=== PATIENT | female | born 1945 | race Two or more races ===

== ENCOUNTER 2018-12-04 09:29 | Emergency (ER) | payer MEDICARE, OTHER ==
[~2018-12-04] VITALS: Ht 157.5 cm; Wt 69.4 kg
--- NOTE | 2018-12-04 09:32 | NUR ---
AAOx3, BIB caregiver from home c/o right thumb pain and swelling, +deformity s/p slipped and fell x 5 days ago. RR is even and unlabored with nad noted. Skin is warm and dry. Awaiting md for eval.
--- NOTE | 2018-12-04 09:38 | NUR ---
Dr Rosales at for eval.
[2018-12-04] MEDS ORDERED: LIDOCAINE HCL/PF 1% 30 ML SDV ONE (09:45)
[2018-12-04] MEDS ORDERED: LIDOCAINE HCL/PF 1% 30 ML VIAL IM ONE (10:00)
[2018-12-04 10:22] VITALS: BP 117/72
--- NOTE | 2018-12-04 10:22 | NUR ---
Patient discharged to home in stable condition. Written and verbal after care instructions given. Patient verbalizes understanding of instruction.
== END 2018-12-04 10:22 | disposition home or self-care (01) ==
LOC: ER 09:33
DX: S63.124A Dislocation of interphalangeal joint of right thumb, initial encounter (principal); F31.9 Bipolar disorder, unspecified; Z98.890 Other specified postprocedural states; Z88.3 Allergy status to other anti-infective agents; W01.0XXA Fall on same level from slipping, tripping and stumbling without subsequent striking against object, initial encounter; Y93.89 Activity, other specified; Y92.89 Other specified places as the place of occurrence of the external cause; Y99.8 Other external cause status
CPT/HCPCS: 26770; 73140; 99284; J3490 ×2

== ENCOUNTER 2021-10-07 13:56 | Inpatient (IN) | payer MEDICARE, OTHER ==
[~2021-10-07] VITALS: Ht 160 cm; Wt 66.7 kg
--- NOTE | 2021-10-07 14:12 | NUR ---
BIBS FEELING MORE DEPRESSED THAN USUAL DENIES SUICIDAL IDEATION BUT STATES THAT SHE INFLICTS WOUNDS ON HER ARMS WITH HER NAILS BY SCRATCHING. PT HAS BEEN OFF HER MEDICATIONS FOR 2 WEEKS DUE TO BEING ALLERGIC. A&OX3. AWAITING MD RUCKER.
--- NOTE | 2021-10-07 14:18 | NUR ---
DR DICKEY AT BEDSIDE
[2021-10-07] MEDS ORDERED: ATOR40TA PO (14:30)
[2021-10-07] MEDS ORDERED: LOSA50TA39 PO (14:30)
[2021-10-07] MEDS ORDERED: MONT10TA22 PO (14:30)
[2021-10-07] MEDS ORDERED: OLOP5DRO15 EACHEYE (14:30)
[2021-10-07] MEDS ORDERED: CYCL30DR EACHEYE (14:30)
[2021-10-07] MEDS ORDERED: LORA10TA7 PO (14:30)
[2021-10-07 14:48] LABS: BASOPHILS # (AUTO) 0.1 K/uL (0.0-0.2); BASOPHILS % (AUTO) 0.9 % (0.0-2.0); HEMATOCRIT 44 % (33-45); HEMOGLOBIN 14.4 g/dL (11.5-14.8); LYMPHOCYTES # (AUTO) 2.3 K/uL (0.8-4.8); LYMPHOCYTES % (AUTO) 28.7 % (20.0-44.0); MEAN CORPUSCULAR HGB CONC 33 g/dl (31.0-36.0); MEAN CORPUSCULAR VOLUME 85 fL (82-100); MONOCYTES # (AUTO) 0.5 K/uL (0.1-1.30); MONOCYTES % (AUTO) 5.8 % (2.0-12.0); NEUTROPHILS # (AUTO) 5.2 K/uL (1.8-8.9); NEUTROPHILS % (AUTO) 64.6 % (43.0-81.0); PLATELET COUNT (AUTO) 258 K/uL (150-450); RED BLOOD CELL COUNT(AUTO) 5.15 MIL/uL (4.0-5.2)
--- NOTE | 2021-10-07 14:48 | NUR ---
COVID TEST COLLECTED AND SENT
--- NOTE | 2021-10-07 14:50 | NUR ---
MOVE SHEET SUBMITTED.
[2021-10-07 14:56] LABS: ALANINE AMINOTRANSFERASE 12 U/L (12-78); ALBUMIN 4.3 g/dL (3.4-5.0); ALCOHOL, BLOOD < 3 mg/dL (0-0); ALKALINE PHOSPHATASE 101 U/L (46-116); ASPARTATE AMINOTRANSFERASE 16 U/L (15-37); BILIRUBIN,DIRECT 0.1 mg/dL (0.0-0.2); BILIRUBIN,TOTAL 0.5 mg/dL (0.2-1.0); CALCIUM, SERUM 9.7 mg/dL (8.5-10.1); CARBON DIOXIDE 24 mmol/L (21-32); CHLORIDE 103 mmol/L (98-107); CREATININE 1.3 mg/dL (0.6-1.3); GLUCOSE 115 mg/dL (74-106); POTASSIUM 4.5 mmol/L (3.5-5.1); SODIUM SERUM 137 mmol/L (136-145); TOTAL PROTEIN, SERUM 7.7 g/dL (6.4-8.2); UREA NITROGEN, BLOOD 19 mg/dL (7-18)
[2021-10-07 15:34] LABS: ACETAMINOPHEN < 0 ug/ml (10-30)
--- NOTE | 2021-10-07 16:21 | NUR ---
URINE COLLECTED AND SENT
[2021-10-07 17:27] LABS: BILIRUBIN,URINE NEGATIVE (NEGATIVE); LEUKOCYTE ESTERASE ,URINE NEGATIVE (NEGATIVE); NITRITE, URINE NEGATIVE (NEGATIVE); PH,URINE 5.5 (5.0-8.0); PROTEIN,URINE NEGATIVE (NEGATIVE); UGLUCOSE NEGATIVE (NEGATIVE); UROBILINOGEN,URINE 0.2 EU/dL (0.2)
[2021-10-07 17:31] LABS: COLOR,URINE LIGHT YELLOW (YELLOW)
--- NOTE | 2021-10-07 17:45 | NUR ---
CALLED CLINICIAN MARBELLA [phone] ETA [phone]
--- NOTE | 2021-10-07 19:10 | NUR ---
MARBELLA LY AT BEDSIDE
--- NOTE | 2021-10-07 20:01 | NUR ---
5150 HOLD: PER [facility] CRISIS TEAM "[facility] for danger to self and gravely disabled. pt was placed on [facility] 5150 for danger to self and gravely disabled. Pt verbalized a plan to use a razor blade to cut on her wrist with intent to kill self. pt also verbalized inability to self care and cope with increase in depressive symptoms.pt is unable to ensure her safety."
--- NOTE | 2021-10-07 20:03 | NUR ---
REPORT GIVEN TO NOVEM FROM [facility]
--- NOTE | 2021-10-07 20:27 | NUR ---
PT TRANSFERRED TO [facility] VIA H[facility]PITAL PROTOCOL. ALL BELONGINGS WITH PT.
[2021-10-07 20:30] VITALS: BP 146/78
[2021-10-07] MEDS ORDERED: MAG HYDROX/AL HYDROX/SIMETH 30 ML UDC PO PRN (20:30)
[2021-10-07] MEDS ORDERED: BLOOD SUGAR DIAGNOSTIC 1 EACH STRIP IN ONE (20:30)
--- NOTE | 2021-10-07 20:30 | NUR ---
[employer] -CORPORATE CONTROLLER NOTES ADMITTED A 75-Y/O, FEMALE, PATIENT CAME FROM HOME. ADMITTED ON A 5150 HOLD FOR DTS/GD. PER HOLD, PATIENT REPORTED HISTORY OF DEPRESSION, SYMPTOMS WORSENING, DISCLOSE FEELING SUICIDAL WITH PLAN TO USE A RAZOR BLADE TO CUT WRISTS. PT REPORTED INABILITY TO SELF CARE DUE TO INCREASE IN DEPRESSIVE SYMPTOMS, UNABLE TO CONTRACT FOR SAFETY. UPON FACE TO FACE EVALUATION, PT IS A/OX3, APPEARS DEPRESSED, BLUNTED AFFECT, WITHDRAWN, ANXIOUS BUT COOPERATIVE TO CARE. DENIED SI/HI/AVH AT THIS TIME. SKIN ASSESSMENT DONE. BELONGINGS WERE INVENTORIED AND CHECKED FOR CONTRABAND. OFFERED PNEUMONIA VACCINE BUT PATIENT REFUSED. PATIENT IS UNDER THE PSYCHIATRIC CARE OF DR. DR. DE LA CRUZ AND MEDICAL CARE OF SCENE AND LIGHTING DESIGN LECTURER MITCHEL LOPEZ. BED IN LOW LOCKED POSITION. SAFETY PRECAUTIONS MAINTAINED. WILL CONTINUE TO MONITOR Q15 MINS FOR MOOD, SAFETY AND BEHAVIOR.
[2021-10-07] MEDS: ACETAMINOPHEN 325 MG TABLET PO PRN (22:38)
[2021-10-08] MEDS: ACETAMINOPHEN 325 MG TABLET PO PRN (04:16)
[2021-10-08 05:59] LABS: ALANINE AMINOTRANSFERASE 13 U/L (12-78); ALBUMIN 3.5 g/dL (3.4-5.0); ALKALINE PHOSPHATASE 82 U/L (46-116); ASPARTATE AMINOTRANSFERASE 14 U/L (15-37); BILIRUBIN,TOTAL 0.4 mg/dL (0.2-1.0); CALCIUM, SERUM 8.5 mg/dL (8.5-10.1); CARBON DIOXIDE 24 mmol/L (21-32); CHLORIDE 103 mmol/L (98-107); CREATININE 1.4 mg/dL (0.6-1.3); GLUCOSE 112 mg/dL (74-106); SODIUM SERUM 136 mmol/L (136-145); TOTAL PROTEIN, SERUM 6.8 g/dL (6.4-8.2); UREA NITROGEN, BLOOD 19 mg/dL (7-18)
[2021-10-08 06:13] LABS: CHOLESTEROL 157 mg/dL (<200); HDL CHOLESTEROL 71 mg/dL (40-60); LDL 69 mg/dL (0-99)
[2021-10-08 06:24] LABS: TRIGLYCERIDES 64 mg/dL (30-150)
[2021-10-08 08:00] VITALS: BP 135/71
[2021-10-08] MEDS: LORATADINE 10 MG TABLET PO SCH (08:24)
[2021-10-08] MEDS: MONTELUKAST SODIUM (10MG) 10 MG TABLET PO SCH (08:24)
[2021-10-08] MEDS: LOSARTAN POTASSIUM 50 MG TABLET PO SCH (08:24)
[2021-10-08] MEDS: ATORVASTATIN 40 MG TABLET PO SCH (08:24)
[2021-10-08] MEDS ORDERED: Medication Not On Formulary EA (Cyclosporine (Restasis) 1 DROP) EACHEYE SCH (09:00)
[2021-10-08] MEDS: OLOPATADINE HCL 0.1% OPHTH BOTTLE EACHEYE SCH ×2 (09:07→16:09)
[2021-10-08] MEDS: LORAZEPAM 0.5 MG TABLET PO PRN ×2 (10:59→17:28)
[2021-10-08] MEDS: FLUOXETINE HCL 20 MG CAPSULE PO SCH (13:01)
[2021-10-08 16:00] VITALS: BP 137/75
--- NOTE | 2021-10-08 18:16 | NUR ---
PATIENT HAVE RESTASIS EYE DROP AT HOME, SO INFORMED TO PATIENT TO TO BRIG FAMILY MEMBER TO PHARMACY.
[2021-10-08 20:00] VITALS: BP 120/70
[2021-10-08] MEDS: MIRTAZAPINE 15 MG TABLET PO SCH (22:07)
--- NOTE | 2021-10-08 23:13 | NUR ---
RN NOTES: PATIENT RESTING IN BED AWAKE, ALERT . NO S/SX OF ACUTE DISTRESS NOTED. PATIENT EASILY AGITATED ANXIOUS, NEEDY, DEMANDING, EASILY GETS IRRITABLE, DENIED SI/HI/AVH AT THIS TIME. SAFETY PRECAUTIONS IN PLACE. WILL CONTINUE TO MONITOR Q15MIN ROUNDS FOR SAFETY AND BEHAVIOR.
[2021-10-09] MEDS: LORAZEPAM 0.5 MG TABLET PO PRN ×3 (01:14→18:13)
--- NOTE | 2021-10-09 01:16 | NUR ---
RN NOTES: ANXIETY PT. C/O FEELING ANXIETY, PRN ATIVAN 0.5 MG PO GIVEN , WILL CONTINUE TO MONITOR.
[2021-10-09 08:00] VITALS: BP 110/67
[2021-10-09] MEDS: ATORVASTATIN 40 MG TABLET PO SCH (08:42)
[2021-10-09] MEDS: LORATADINE 10 MG TABLET PO SCH (08:42)
[2021-10-09] MEDS: MONTELUKAST SODIUM (10MG) 10 MG TABLET PO SCH (08:43)
[2021-10-09] MEDS: LOSARTAN POTASSIUM 50 MG TABLET PO SCH (08:43)
[2021-10-09] MEDS: OLOPATADINE HCL 0.1% OPHTH BOTTLE EACHEYE SCH ×2 (08:44→16:19)
--- NOTE | 2021-10-09 09:08 | NUR ---
ARNOLD Clinical Note: Patient placed on a 5150 hold for danger to self and GD. Patient lives at [id number] [place] [address], [place] [address]; ([phone]). Pt would want to return back home upon discharge.
--- NOTE | 2021-10-09 09:08 | NUR ---
ARNOLD Initial Discharge Plan: Patient lives at [address] [facility] [address], [place] [address]; ([phone]) with her cat and would want to return back home. ARNOLD will work with the MD, treatment team, and family to help coordinate appropriate discharge.
--- NOTE | 2021-10-09 09:19 | NUR ---
Caregiver: ARNOLD contacted patient's caregiver Anabell ([phone]) and left a detailed voicemail of treatment/discharge plan. Addendum: 10/09/21 at 0920 by ARNOLD PIMENTEL ARNOLD attempted to contact again and mailbox was full.
[2021-10-09] MEDS: FLUOXETINE HCL 20 MG CAPSULE PO SCH (12:10)
[2021-10-09 15:50] VITALS: BP 118/80
--- NOTE | 2021-10-09 18:00 | NUR ---
RN NOTES PT WALKING AROUND , REQUESTING ATIVAN PRN FOR ANXIETY AT THIS , VSS STABLE, WILL ENDORSE TO DETAILER NURSE FOR CONTINUITY OF CARE .
[2021-10-09] MEDS ORDERED: CYCL30DR EACHEYE (19:38)
[2021-10-09 20:00] VITALS: BP 138/80
[2021-10-09] MEDS: MIRTAZAPINE 15 MG TABLET PO SCH (21:10)
--- NOTE | 2021-10-09 22:45 | NUR ---
RN NOTES: PATIENT RESTING IN BED AWAKE, ALERT . NO S/SX OF ACUTE DISTRESS NOTED. PATIENT EASILY AGITATED ANXIOUS, EASILY GETS IRRITABLE, DENIED SI/HI/AVH AT THIS TIME. SAFETY PRECAUTIONS IN PLACE. WILL CONTINUE TO MONITOR Q15MIN ROUNDS FOR SAFETY AND BEHAVIOR.
[2021-10-10] MEDS: LORAZEPAM 0.5 MG TABLET PO PRN ×4 (01:20→20:08)
--- NOTE | 2021-10-10 01:21 | NUR ---
RN NOTES: ANXIETY PT. C/O FEELING ANXIETY, PRN ATIVAN 0.5 MG PO GIVEN , WILL CONTINUE TO MONITOR.
[2021-10-10] MEDS: LORATADINE 10 MG TABLET PO SCH (07:54)
[2021-10-10] MEDS: MONTELUKAST SODIUM (10MG) 10 MG TABLET PO SCH (07:54)
[2021-10-10] MEDS: OLOPATADINE HCL 0.1% OPHTH BOTTLE EACHEYE SCH ×2 (07:54→16:10)
[2021-10-10] MEDS: ATORVASTATIN 40 MG TABLET PO SCH (07:54)
[2021-10-10] MEDS: LOSARTAN POTASSIUM 50 MG TABLET PO SCH (07:56)
[2021-10-10 08:00] VITALS: BP 134/69
[2021-10-10] MEDS: FLUOXETINE HCL 20 MG CAPSULE PO SCH (12:16)
--- NOTE | 2021-10-10 14:30 | NUR ---
RN NOTE PATIENT SEEN AGITATED AND BANGED HER BEDROOM'S DOOR TWICE SAYING "I NEED MY MEDICATION FOR CONSTIPATION. I HAVEN'T POOP FOR 4 DAYS NOW." TOLD PATIENT SHE WAS BANGING THE DOOR AND SEEM MAD. SHE SAID THAT SHE WILL NOT DO IT AGAIN.
[2021-10-10] MEDS: MAGNESIUM HYDROXIDE 30 ML UDC PO PRN (14:36)
--- NOTE | 2021-10-10 14:36 | NUR ---
RN NOTE GAVE MILK OF MAGNESIA FOR CONSTIPATION. WILL MONITOR.
[2021-10-10 15:54] VITALS: BP 130/63
--- NOTE | 2021-10-10 20:18 | NUR ---
RN NOTES: ANXIETY PT. C/O FEELING ANXIETY, PRN ATIVAN 0.5 MG PO GIVEN , WILL CONTINUE TO MONITOR.
[2021-10-10 21:05] VITALS: BP 139/83
[2021-10-10] MEDS: MIRTAZAPINE 15 MG TABLET PO SCH (21:26)
--- NOTE | 2021-10-10 22:00 | NUR ---
RN NOTES: PATIENT RESTING IN BED AWAKE, ALERT . NO S/SX OF ACUTE DISTRESS NOTED. PATIENT EASILY AGITATED ANXIOUS, NEEDY, DEMANDING,PARANOID, EASILY GETS IRRITABLE, DENIED SI/HI/AVH AT THIS TIME. SAFETY PRECAUTIONS IN PLACE. WILL CONTINUE TO MONITOR Q15MIN ROUNDS FOR SAFETY AND BEHAVIOR.
[2021-10-11] MEDS: LORAZEPAM 0.5 MG TABLET PO PRN ×4 (02:12→22:23)
--- NOTE | 2021-10-11 02:15 | NUR ---
RN NOTES : ANXIETY PT. C/O FEELING ANXIETY, PRN ATIVAN 0.5 MG PO GIVEN , WILL CONTINUE TO MONITOR.
--- NOTE | 2021-10-11 07:22 | NUR ---
GPS RN NOTE RECEIVED PATIENT AWAKE AND IN BED, NO S/S OR COMPLAINTS OF PAIN AT THIS TIME. PATIENT IS DISPLAYING NO S/S OF APPARENT DISTRESS AT THIS TIME. PATIENT'S BREATHING IS UNLABORED WITH EQUAL RISE AND FALL OF THE CHEST. PATIENT IS ALERT AND ORIENTED X 3 ON ROOM AIR WITH A SPO2 OF 97%. PATIENT IS COMPLIANT WITH MEDICATION, DISORGANIZED, RESPONDING TO INTERNAL STIMULI, ANXIOUS AND COOPERATIVE. PATIENT DENIES SUICIDE IDEATIONS AND HOMICIDAL IDEATIONS AT THIS TIME. PATIENT ASSISTED WITH TURNING AND REPOSITIONING Q2 HR AND PRN FOR COMFORT AND CIRCULATION. PATIENT HAS NO NEEDS AT THIS TIME. PATIENT EDUCATED ON THE USE OF THE CALL SERNA. PATIENT BED SIDE RAILS UP X2 FOR SAFETY, BED IN LOCKED AND LOW. WILL CONTINUE TO MONITOR Q 15 MIS WITH THE HELP OF STAFF TO MAINTAIN SAFETY.
[2021-10-11 08:00] VITALS: BP 123/76
[2021-10-11] MEDS: LORATADINE 10 MG TABLET PO SCH (08:11)
[2021-10-11] MEDS: OLOPATADINE HCL 0.1% OPHTH BOTTLE EACHEYE SCH ×2 (08:11→17:15)
[2021-10-11] MEDS: LOSARTAN POTASSIUM 50 MG TABLET PO SCH (08:12)
[2021-10-11] MEDS: MONTELUKAST SODIUM (10MG) 10 MG TABLET PO SCH (08:12)
[2021-10-11] MEDS: ATORVASTATIN 40 MG TABLET PO SCH (08:12)
--- NOTE | 2021-10-11 08:15 | NUR ---
GPS RN NOTE COMPLAINED OF ANXIETY, WITH PRN MEDICATION FOR ANXIETY. ATIVAN GIVEN ORDERED. PROVIDED WITH CALM AND QUIET ENVIRONMENT. HEALTH TEACHING DONE REGARDING RELAXATION TECHNIQUES, VERBALIZED UNDERSTANDING AND APPRECIATION.
[2021-10-11] MEDS: MAGNESIUM HYDROXIDE 30 ML UDC PO PRN (08:20)
--- NOTE | 2021-10-11 11:25 | NUR ---
[facility]PS RN NOTE SEEN BY DR. DE LA CRUZ
[2021-10-11] MEDS: FLUOXETINE HCL 20 MG CAPSULE PO SCH (12:17)
--- NOTE | 2021-10-11 13:20 | NUR ---
[facility]PS RN NOTE PATIENT COMPLAINED OF CONSTIPATION. DR. STARK NOTIFIED WITH ORDERS MADE AND VERIFIED. IN STABLE CONDITION.
[2021-10-11] MEDS ORDERED: LACTULOSE 10 G/15 ML UDC (PYXIS) PO ONE (13:30)
[2021-10-11] MEDS ORDERED: Fluoxetine 10 mg capsule PO ONE (14:30)
--- NOTE | 2021-10-11 14:40 | NUR ---
[facility]PS RN NOTE PATIENT COMPLAINED OF ANXIETY. PATIENT AWARE OF PRN MEDICATION ATIVAN. ATIVAN GIVEN ORDERED. ENCOURAGED TO DO DEEP BREATHING EXERCISES. IN STABLE CONDITION. WILL CONTINUE TO MONITOR PATIENT.
[2021-10-11 16:00] VITALS: BP 132/75
[2021-10-11] MEDS: DOCUSATE SODIUM 100 MG CAPSULE PO SCH (17:15)
--- NOTE | 2021-10-11 19:00 | NUR ---
GPS RN NOTE PATIENT AWAKE AND IN BED, NO S/S OR COMPLAINTS OF PAIN AT THIS TIME. PATIENT IS DISPLAYING NO S/S OF APPARENT DISTRESS AT THIS TIME. PATIENT'S BREATHING IS UNLABORED WITH EQUAL RISE AND FALL OF THE CHEST. PATIENT IS ALERT AND ORIENTED X 3 ON ROOM AIR WITH A SPO2 OF 97%. PATIENT IS COMPLIANT WITH MEDICATION, DISORGANIZED, ANXIOUS AND COOPERATIVE. PATIENT DENIES SUICIDE IDEATIONS AND HOMICIDAL IDEATIONS AT THIS TIME. PATIENT ASSISTED WITH TURNING AND REPOSITIONING Q2 HR AND PRN FOR COMFORT AND CIRCULATION. PATIENT HAS NO NEEDS AT THIS TIME. PATIENT EDUCATED ON THE USE OF THE CALL SERNA. PATIENT BED SIDE RAILS UP X2 FOR SAFETY, BED IN LOCKED AND LOW. ENDORSE PATIENT TO NEXT SHIFT FOR CONTINUITY OF CARE.
--- NOTE | 2021-10-11 19:15 | NUR ---
[facility]PS RN NOTES RECEIVED PATIENT IN BED AWAKE, ALERT AND ORIENTED X3, NO S/SX OF ACUTE DISTRESS NOTED. PATIENT REMAINS DEPRESSED, ANXIOUS, GUARDED. DENIED SI/HI/AVH AT THIS TIME. VERBALIZATION OF FEELINGS ENCOURAGED. ENCOURAGED PATIENT TO ATTEND IN GROUP ACTIVITIES. SAFETY PRECAUTIONS MAINTAINED. WILL CONTINUE TO MONITOR Q15MIN ROUNDS FOR SAFETY AND BEHAVIOR.
[2021-10-11 20:09] VITALS: BP 113/60
[2021-10-11] MEDS: MIRTAZAPINE 15 MG TABLET PO SCH (21:14)
[2021-10-12] MEDS: LORAZEPAM 0.5 MG TABLET PO PRN ×3 (04:58→22:35)
[2021-10-12 08:00] VITALS: BP 148/78
[2021-10-12] MEDS: DOCUSATE SODIUM 100 MG CAPSULE PO SCH ×2 (08:40→17:46)
[2021-10-12] MEDS: MONTELUKAST SODIUM (10MG) 10 MG TABLET PO SCH (08:40)
[2021-10-12] MEDS: LOSARTAN POTASSIUM 50 MG TABLET PO SCH (08:40)
[2021-10-12] MEDS: LORATADINE 10 MG TABLET PO SCH (08:41)
[2021-10-12] MEDS: ATORVASTATIN 40 MG TABLET PO SCH (08:41)
[2021-10-12] MEDS: OLOPATADINE HCL 0.1% OPHTH BOTTLE EACHEYE SCH ×2 (08:42→17:49)
[2021-10-12] MEDS: ARIPIPRAZOLE 2 MG TABLET PO SCH ×2 (11:00→17:46)
[2021-10-12] MEDS ORDERED: Fluoxetine 10 mg capsule PO SCH (13:00)
[2021-10-12] MEDS: Fluoxetine 10 mg capsule PO SCH (13:38)
--- NOTE | 2021-10-12 15:51 | NUR ---
Patient c/o anxiety medicated with Ativan 0.5mg x1 will continue to monitor .
[2021-10-12 16:00] VITALS: BP 135/73
[2021-10-12] MEDS: MAGNESIUM HYDROXIDE 30 ML UDC PO PRN (20:07)
--- NOTE | 2021-10-12 20:08 | NUR ---
RN NOTES: PT. C/O CONSTIPATION PRN MOM 30 ML GIVEN PER PT. REQUEST, WILL CONTINUE TO MONITOR.
[2021-10-12 20:27] VITALS: BP 119/68
[2021-10-12] MEDS: MIRTAZAPINE 15 MG TABLET PO SCH (21:06)
--- NOTE | 2021-10-12 22:37 | NUR ---
RN NOTES: ANXIETY PT. C/O FEELING ANXIETY,RESTLESS, PRN ATIVAN 0.5 MG PO GIVEN , WILL CONTINUE TO MONITOR.
[2021-10-13] MEDS: LORAZEPAM 0.5 MG TABLET PO PRN ×3 (04:46→18:26)
--- NOTE | 2021-10-13 04:47 | NUR ---
RN NOTES: ANXIETY PT. C/O FEELING ANXIETY,RESRLESS, PRN ATIVAN 0.5 MG PO GIVEN , WILL CONTINUE TO MONITOR.
[2021-10-13 07:32] LABS: BASOPHILS % (AUTO) 0.6 % (0.0-2.0); HEMATOCRIT 38 % (33-45); HEMOGLOBIN 12.7 g/dL (11.5-14.8); LYMPHOCYTES # (AUTO) 2.5 K/uL (0.8-4.8); LYMPHOCYTES % (AUTO) 41.5 % (20.0-44.0); MEAN CORPUSCULAR HGB CONC 33 g/dl (31.0-36.0); MEAN CORPUSCULAR VOLUME 84 fL (82-100); MONOCYTES # (AUTO) 0.5 K/uL (0.1-1.30); MONOCYTES % (AUTO) 8.3 % (2.0-12.0); NEUTROPHILS # (AUTO) 2.9 K/uL (1.8-8.9); NEUTROPHILS % (AUTO) 49.6 % (43.0-81.0); PLATELET COUNT (AUTO) 220 K/uL (150-450); RED BLOOD CELL COUNT(AUTO) 4.57 MIL/uL (4.0-5.2); WHITE BLOOD COUNT (AUTO) 5.9 K/uL (4.3-11.0)
[2021-10-13 08:00] VITALS: BP 139/79
[2021-10-13] MEDS: DOCUSATE SODIUM 100 MG CAPSULE PO SCH ×2 (09:20→17:26)
[2021-10-13] MEDS: MONTELUKAST SODIUM (10MG) 10 MG TABLET PO SCH (09:21)
[2021-10-13] MEDS: ATORVASTATIN 40 MG TABLET PO SCH (09:21)
[2021-10-13] MEDS: OLOPATADINE HCL 0.1% OPHTH BOTTLE EACHEYE SCH ×2 (09:23→17:26)
[2021-10-13] MEDS: ARIPIPRAZOLE 2 MG TABLET PO SCH ×2 (09:23→17:27)
[2021-10-13] MEDS: LOSARTAN POTASSIUM 50 MG TABLET PO SCH (09:23)
[2021-10-13] MEDS: LORATADINE 10 MG TABLET PO SCH (09:23)
[2021-10-13 10:00] LABS: CALCIUM, SERUM 8.8 mg/dL (8.5-10.1); CARBON DIOXIDE 30 mmol/L (21-32); CHLORIDE 103 mmol/L (98-107); CREATININE 1.4 mg/dL (0.6-1.3); GLUCOSE 106 mg/dL (74-106); MAGNESIUM 2.3 mg/dL (1.8-2.4); PHOSPHORUS 2.9 mg/dL (2.5-4.9); POTASSIUM 4.3 mmol/L (3.5-5.1); SODIUM SERUM 139 mmol/L (136-145); UREA NITROGEN, BLOOD 23 mg/dL (7-18)
--- NOTE | 2021-10-13 10:40 | NUR ---
IOP: SW contacted pt's IOP home health care case manager Arnoldo ([phone]) for her IOP program [facility] located at [address] [place] [address]. Pt had concerned to change her doctor and Arnoldo CM stated that they have a new psychiatrist Dr. Magana that she will follow up with.
[2021-10-13] MEDS: Fluoxetine 10 mg capsule PO SCH (12:26)
--- NOTE | 2021-10-13 12:27 | NUR ---
Patient c/o anxiety medicated with Ativan 0.5mg x1 will continue to monitor .
--- NOTE | 2021-10-13 12:53 | NUR ---
Court Notification: SW attempted to contact patient's caregiver Anabell ([phone]) and she was unavailable.
--- NOTE | 2021-10-13 12:53 | NUR ---
Court Hearing: Patient's court hearing for 5250 was today and it was upheld for Danger to self and GD.
--- NOTE | 2021-10-13 12:56 | NUR ---
ARNOLD Coordination of Care: Patient will follow up with New Psychiatrist Dr. Magana located at [address] [place] [id number]; ([phone]) and pt will be picked up from the IOP program Tuesday, October 19, 2021 between 11:30AM. Scheduled by Arnoldo UGALDE
--- NOTE | 2021-10-13 14:05 | NUR ---
Social Work Note/Substance Abuse Intervention: Patient was provided with a brief substance abuse intervention and referred to [facility] ([phone]), Florin Hernandez ([phone]), and [facility] ([phone]) for alcohol abuse.
[2021-10-13 16:00] VITALS: BP 142/89
--- NOTE | 2021-10-13 18:27 | NUR ---
Patient complained of anxiety; PRN Ativan 0.5mgx1 administered @1826. Will f/u on effectiveness of medication.
[2021-10-13 19:46] VITALS: BP 106/61
--- NOTE | 2021-10-13 20:11 | NUR ---
RN NOTES;PATIENT RESTING IN BED AWAKE, NO S/SX OF ACUTE DISTRESS NOTED. PATIENT REMAINS DEPRESSED, ANXIOUS, GUARDED. DENIED SI/HI/AVH AT THIS TIME. VERBALIZATION OF FEELINGS ENCOURAGED. ENCOURAGED PATIENT TO ATTEND IN GROUP ACTIVITIES. SAFETY PRECAUTIONS MAINTAINED. WILL CONTINUE TO MONITOR Q15MIN ROUNDS FOR SAFETY AND BEHAVIOR.
[2021-10-13] MEDS: MIRTAZAPINE 15 MG TABLET PO SCH (22:13)
[2021-10-14] MEDS: LORAZEPAM 0.5 MG TABLET PO PRN ×2 (01:57→14:25)
--- NOTE | 2021-10-14 01:58 | NUR ---
RN NOTES: ANXIETY PT. C/O FEELING ANXIETY,RESTLESS, PRN ATIVAN 0.5 MG PO GIVEN , WILL CONTINUE TO MONITOR.
[2021-10-14 08:00] VITALS: BP 137/83
[2021-10-14] MEDS: LORATADINE 10 MG TABLET PO SCH (08:27)
[2021-10-14] MEDS: ATORVASTATIN 40 MG TABLET PO SCH (08:27)
[2021-10-14] MEDS: LOSARTAN POTASSIUM 50 MG TABLET PO SCH (08:27)
[2021-10-14] MEDS: ARIPIPRAZOLE 2 MG TABLET PO SCH ×2 (08:27→16:58)
[2021-10-14] MEDS: DOCUSATE SODIUM 100 MG CAPSULE PO SCH ×2 (08:27→16:58)
[2021-10-14] MEDS: OLOPATADINE HCL 0.1% OPHTH BOTTLE EACHEYE SCH ×2 (08:28→16:59)
[2021-10-14] MEDS: MONTELUKAST SODIUM (10MG) 10 MG TABLET PO SCH (08:28)
[2021-10-14] MEDS ORDERED: POLYETHYLENE GLYCOL 3350 17 GM POWD.PACK PO PRN (12:00)
[2021-10-14] MEDS ORDERED: BISACODYL SUPP (10 MG) 10 MG/SUPP.RECT SUPP.RECT RC PRN (12:00)
[2021-10-14] MEDS: Fluoxetine 10 mg capsule PO SCH (12:21)
--- NOTE | 2021-10-14 12:36 | NUR ---
PRN CONSTIPATION Patient complains of stomach pain and states she hasn't had a bowel movement in 3 days. Previously administered MOM was ineffective. PRN one-time dose of dulcolax suppository and miralax administered @1222. Will f/u with patient on medications' effectiveness.
--- NOTE | 2021-10-14 13:30 | NUR ---
F/U PRN CONSTIPATION Patient reported having a small BM. Will continue to monitor patient.
--- NOTE | 2021-10-14 14:33 | NUR ---
PRN ANXIETY Patient complains of feeling anxious. Ativan 0.5mg PO administered. Will monitor patient for medication effectiveness.
--- NOTE | 2021-10-14 15:03 | NUR ---
F/U ANXIETY Patient is calm, cooperative, and redirectable. No further reports of anxiety noted.
[2021-10-14 16:00] VITALS: BP 112/60
--- NOTE | 2021-10-14 19:15 | NUR ---
[facility]PS RN NOTES RECEIVED PATIENT IN BED AWAKE, A/OX3, NO S/SX OF ACUTE DISTRESS NOTED. PATIENT REMAINS ANXIOUS, GUARDED, COOPERATIVE TO CARE. DENIED SI/HI/AVH AT THIS TIME. VERBALIZATION OF FEELINGS ENCOURAGED. ENCOURAGED PATIENT TO ATTEND IN GROUP ACTIVITIES. SAFETY PRECAUTIONS MAINTAINED. WILL CONTINUE TO MONITOR Q15MIN ROUNDS FOR SAFETY AND BEHAVIOR.
[2021-10-14 20:00] VITALS: BP 107/57
[2021-10-14] MEDS: MIRTAZAPINE 15 MG TABLET PO SCH (21:00)
[2021-10-15] MEDS: LORAZEPAM 0.5 MG TABLET PO PRN (00:09)
--- NOTE | 2021-10-15 07:48 | NUR ---
RN-CO: Patient is calm and cooperative to care. Denied suicidal and homicidal ideation. She denied auditory and visual hallucination. No acute distress noted. Denied pain and discomforts.Aware that she is going home today. Janki Mccormack ordered to discontinue hold and discharge patient home , noted. Patient was medically cleared for discharge by Dr Dickerson. Belongings will be given back to the patient.
--- NOTE | 2021-10-15 07:59 | NUR ---
SW Discharge Note: [place] [address] [address]; ([phone]). Patients caregiver Anabell ([phone]) will picker / packer pt at 11AM. Patient is alert and oriented x3. Patient is happy to be going back home. Patient denies suicidal or homicidal ideation. Patient denies visual/auditory hallucinations. Patient will follow up with (Board Machine Set Up Operator) Dr. Janice Dodson [place] at [address] [place] [address]; ([phone]). Patient will follow up with New Psychiatrist Dr. Magana [place] at [address] [place] [address]; ([phone]) and pt will be picked up from the IOP program Tuesday, October 19, 2021 between 11:30AM. Patient in IOP program with [facility] and has a KATY Mclaughlin ([phone]) is involved. Patient presents with euthymic mood and congruent affect.
[2021-10-15] MEDS: DOCUSATE SODIUM 100 MG CAPSULE PO SCH (08:13)
[2021-10-15] MEDS: MONTELUKAST SODIUM (10MG) 10 MG TABLET PO SCH (08:13)
[2021-10-15] MEDS: LORATADINE 10 MG TABLET PO SCH (08:13)
[2021-10-15] MEDS: ARIPIPRAZOLE 2 MG TABLET PO SCH (08:13)
[2021-10-15] MEDS: ATORVASTATIN 40 MG TABLET PO SCH (08:13)
[2021-10-15 08:14] VITALS: BP 114/51
[2021-10-15] MEDS: LOSARTAN POTASSIUM 50 MG TABLET PO SCH (08:14)
--- NOTE | 2021-10-15 08:44 | NUR ---
RN-CO: DR Gio Ching medically cleared the patient for discharge.
--- NOTE | 2021-10-15 08:54 | NUR ---
Dr. Mccormack gave an order to D/C hold and D/C home and to follow up with psych and medical doctors. Psychiatrist provided a prescription upon discharge.
[2021-10-15] MEDS: OLOPATADINE HCL 0.1% OPHTH BOTTLE EACHEYE SCH (08:56)
--- NOTE | 2021-10-15 12:30 | NUR ---
RN-CO: Patient was picked up by care asst Anabell [phone]. Instructed to see her psychiatrist and prescriptions were discussed and she verbalized understanding.
== END 2021-10-15 12:35 | disposition home or self-care (01) | DRG 885 ==
LOC: ER 14:10 → GPS 19:58
PROVIDERS: ADMIT Psychiatry & Neurology Psychosomatic Medicine; ATTEND Nurse Practitioner Acute Care
DX: F25.0 Schizoaffective disorder, bipolar type (principal); F29 Unspecified psychosis not due to a substance or known physiological condition; F41.9 Anxiety disorder, unspecified; E78.5 Hyperlipidemia, unspecified; F19.90 Other psychoactive substance use, unspecified, uncomplicated; F43.10 Post-traumatic stress disorder, unspecified; I10 Essential (primary) hypertension; Z62.810 Personal history of physical and sexual abuse in childhood; G47.00 Insomnia, unspecified; Z87.74 Personal history of (corrected) congenital malformations of heart and circulatory system; Z88.4 Allergy status to anesthetic agent; Z91.018 Allergy to other foods; Z79.899 Other long term (current) drug therapy; E86.0 Dehydration; R79.89 Other specified abnormal findings of blood chemistry; I34.0 Nonrheumatic mitral (valve) insufficiency
CPT/HCPCS: 36415; 80048-TC; 80053-TC; 80061-TC; 80076-TC; 82962-TC; 83735-TC; 84100-TC; 84443-TC; 85025-TC; 87081-TC; 97116-TC; 97530-TC; C9803; G0480